=== PATIENT | male | born 1955 | race Caucasian/White ===

== ENCOUNTER 2021-02-22 08:14 | Day surgery (SDC) | payer MEDICARE ==
[2021-02-22] MEDS ORDERED: Sodium Bicarbonate 2.5 MEQ/5 ML VIAL ONE (08:32)
[2021-02-22] MEDS ORDERED: Lidocaine 1% PF 5 ML VIAL ONE (08:32)
[2021-02-22 08:42] VITALS: BMI 31.0
[2021-02-22 08:48] VITALS: BP 138/78; TEMP 98
== END 2021-02-22 11:00 | disposition home or self-care (01) ==
LOC: CSHRAD 08:14
PROVIDERS: ATTEND Family Medicine
DX: M48.062 Spinal stenosis, lumbar region with neurogenic claudication (principal); M54.16 Radiculopathy, lumbar region; M51.36 Other intervertebral disc degeneration, lumbar region
CPT/HCPCS: 62304; 72131

== ENCOUNTER → 2023-05-24 | Day surgery (SDC) | payer MEDICARE ==
[~2023-05-24] MED LIST: Iopamidol-M 200 41% 10 ML VIAL FS ONE; Lidocaine 1% PF 5 ML VIAL ONE; Sodium Bicarbonate 2.5 MEQ/5 ML VIAL ONE
== END ==
LOC: CSHRAD 09:07
PROVIDERS: ATTEND Physician Assistant
PROC: B02BY0Z Computerized Tomography (CT Scan) of Spinal Cord using Other Contrast, Unenhanced and Enhanced (ICD-10-PCS; principal; 2023-05-24)
DX: M51.16 Intervertebral disc disorders with radiculopathy, lumbar region (principal)
CPT/HCPCS: 62304; 72132; Q9966